=== PATIENT | female | born 1985 | race American Indian/Alaskan Native ===

== ENCOUNTER 2016-09-28 08:54 | Emergency (ER) | payer MEDICAID ==
[2016-09-28 09:17] VITALS: BP 149/97
[2016-09-28] MEDS ORDERED: ROCEPHIN IM ONE (09:58)
[2016-09-28] MEDS ORDERED: XYLOCAINE 1% MPF 5 mL INFILTRATI ONE (09:58)
--- NOTE | 2016-09-28 10:52 | Emergency Department Report ---
<PRASANTH DE LOS SANTOS - Last Filed: 09/28/16 11:04> ED ENT HPI - General Chief complaint: Dental/Oral Stated complaint: SEVERE PAIN LEFT SIDE JAW Time Seen by Provider: 09/28/16 09:46 Source: patient Mode of arrival: Ambulatory Limitations: No Limitations - History of Present Illness Initial comments: Patient comes in with complaints of mouth pain and swelling. 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 -: Gradual, days(s) (3) Location: other (left greater than right jaw) Severity: moderate Consistency: constant Improves with: none Worsens with: other (palpation) Associated Symptoms: denies: fever, cough, gum swelling, toothache, pain with swallowing, sore throat, tinnitus, hearing loss, discharge from ear, rhinorrhea - Related Data Previous Rx's Medication Instructions Recorded Last Taken Type Acetaminophen/Codeine [Tylenol 1 tab PO Q4HR PRN #30 tablet 09/28/16 Unknown Rx /Codeine # 3 tab] Amoxicillin 1,000 mg PO BID #40 capsule 09/28/16 Unknown Rx predniSONE [Deltasone] 40 mg PO QDAY 5 Days 09/28/16 Unknown Rx Allergies Allergy/AdvReac Type Severity Reaction Status Date / Time aspirin Allergy Angioedema Verified 07/21/15 08:41 ED Dental HPI - General Chief complaint: Dental/Oral Stated complaint: SEVERE PAIN LEFT SIDE JAW Time Seen by Provider: 09/28/16 09:46 Source: patient Mode of arrival: Ambulatory Limitations: No Limitations - Related Data Previous Rx's Medication Instructions Recorded Last Taken Type Acetaminophen/Codeine [Tylenol 1 tab PO Q4HR PRN #30 tablet 09/28/16 Unknown Rx /Codeine # 3 tab] Amoxicillin 1,000 mg PO BID #40 capsule 09/28/16 Unknown Rx predniSONE [Deltasone] 40 mg PO QDAY 5 Days 09/28/16 Unknown Rx Allergies Allergy/AdvReac Type Severity Reaction Status Date / Time aspirin Allergy Angioedema Verified 07/21/15 08:41 ED Review of Systems ROS: Stated complaint: SEVERE PAIN LEFT SIDE JAW Other details as noted in HPI Constitutional: denies: chills, fever Eyes: denies: eye pain, eye discharge, vision change ENT: other (jaw pain and swelling). denies: ear pain, throat pain Respiratory: denies: cough, shortness of breath, wheezing Cardiovascular: denies: chest pain, palpitations Endocrine: no symptoms reported Gastrointestinal: denies: abdominal pain, nausea, diarrhea Genitourinary: denies: urgency, dysuria, discharge Musculoskeletal: denies: back pain, joint swelling, arthralgia Skin: denies: rash, lesions Neurological: denies: headache, weakness, paresthesias Psychiatric: denies: anxiety, depression Hematological/Lymphatic: denies: easy bleeding, easy bruising ED Past Medical Hx - Past Medical History Additional medical history: cystic hygroma - Surgical History Additional Surgical History: "right foot surgery" - Social History Smoking Status: Never Smoker Substance Use Type: None - Medications Home Medications: Home Medications Medication Instructions Recorded Confirmed Last Taken Type Acetaminophen/Codeine [Tylenol 1 tab PO Q4HR PRN #30 tablet 09/28/16 Unknown Rx /Codeine # 3 tab] Amoxicillin 1,000 mg PO BID #40 capsule 09/28/16 Unknown Rx predniSONE [Deltasone] 40 mg PO QDAY 5 Days 09/28/16 Unknown Rx ED Physical Exam - General Limitations: No Limitations General appearance: alert, in no apparent distress - Head Head exam: Present: atraumatic, normocephalic, other (left greater than right jaw swelling without redness) - Eye Eye exam: Present: normal appearance - ENT ENT exam: Present: mucous membranes moist, TM's normal bilaterally, normal external ear exam - Expanded ENT Exam Expanded Mouth exam: Present: tongue normal, other (bilateral external jaw pain and swelling). Absent: drooling, trismus, muffled voice, tongue elevation Teeth exam: Present: other (upper and lower dentures noted) Throat exam: Positive: normal inspection. Negative: tonsillar erythema, tonsillomegaly, tonsillar exudate - Neck Neck exam: Present: normal inspection - Respiratory Respiratory exam: Present: normal lung sounds bilaterally. Absent: respiratory distress - Cardiovascular Cardiovascular Exam: Present: regular rate, normal rhythm. Absent: systolic murmur, diastolic murmur, rubs, gallop - GI/Abdominal GI/Abdominal exam: Present: soft, normal bowel sounds - Extremities Exam Extremities exam: Present: normal inspection - Back Exam Back exam: Present: normal inspection - Neurological Exam Neurological exam: Present: alert, oriented X3 - Psychiatric Psychiatric exam: Present: normal affect, normal mood - Skin Skin exam: Present: warm, dry, intact, normal color. Absent: rash ED Course Vital Signs 09/28/16 09:15 Temperature 98.5 F Pulse Rate 94 H Respiratory 19 Rate Blood Pressure 149/97 O2 Sat by Pulse 100 Oximetry ED Medical Decision Making - Medical Decision Making patient has history of this condition and states that usually steroids and Abx seem to help it calm down. Denies any trauma. Patient given IM Solu-medrol in ER to decrease swelling. Patient is stable for discharge and in agreement with treatment plan. Critical care attestation.: If time is entered above; I have spent that time in minutes in the direct care of this critically ill patient, excluding procedure time. ED Disposition Disposition: DISCHARGED TO HOME OR SELFCARE Is pt being admited?: No Does the pt Need Aspirin: No Condition: Good Instructions: Acetaminophen/Codeine (By mouth), Prednisone (By mouth), Amoxicillin (By mouth) Prescriptions: Acetaminophen/Codeine [Tylenol /Codeine # 3 tab] 1 tab PO Q4HR PRN #30 tablet PRN Reason: Pain Amoxicillin 1,000 mg PO BID #40 capsule predniSONE [Deltasone] 40 mg PO QDAY 5 Days Referrals: PRIMARY CARE,MD [Primary Care Provider] - 3-5 Days Time of Disposition: 10:56 <CIPRIANO BEASLEY - Last Filed: 09/28/16 15:36> ED Course - Reevaluation(s) Reevaluation #1: ARMINDA notified that I do not feel comfortable treating a neck infection with steroids. He was informed to contact patient. Hold steroids. Given ENT referral. 09/28/16 15:35
== END 2016-09-28 11:02 | disposition home or self-care (01) ==
LOC: ED 08:54
DX: R68.84 Jaw pain (principal); R22.0 Localized swelling, mass and lump, head; Z88.6 Allergy status to analgesic agent
CPT/HCPCS: 96372; 99282; J0696; J2930

== ENCOUNTER 2016-10-29 07:16 | Emergency (ER) | payer MEDICAID ==
[2016-10-29 07:25] VITALS: BP 143/97
== END 2016-10-29 07:52 | disposition left against medical advice (07) ==
LOC: ED 07:16
DX: R51 Headache (principal); Z88.6 Allergy status to analgesic agent; Z53.21 Procedure and treatment not carried out due to patient leaving prior to being seen by health care provider

== ENCOUNTER 2016-12-24 10:38 | Emergency (ER) | payer MEDICAID ==
[2016-12-24 11:00] VITALS: BP 156/113
[2016-12-24 11:15] LABS: Basophils % (Auto) 1.2 % (0.0-1.8); Eosinophils % (Auto) 5.6 % (0.0-4.3); Hematocrit 41.3 % (30.3-42.9); Hemoglobin 13.2 gm/dl (10.1-14.3); Mean Corpuscular HGB Conc 32 % (30-34); Mean Corpuscular Hemoglobin 27 pg (28-32); Mean Corpuscular Volume 84 fl (79-97); Platelet Count 327 K/mm3 (140-440); Red Blood Count 4.91 M/mm3 (3.65-5.03); White Blood Count 5.8 K/mm3 (4.5-11.0)
[2016-12-24 11:29] LABS: Anion Gap 18 mmol/L; Blood Urea Nitrogen 12 mg/dL (7-17); Carbon Dioxide 25 mmol/L (22-30); Chloride 102.6 mmol/L (98-107); Glucose 99 mg/dL (65-100); Potassium 4.4 mmol/L (3.6-5.0); Sodium 141 mmol/L (137-145)
== END 2016-12-24 12:45 | disposition left against medical advice (07) ==
LOC: ED 10:38
DX: R51 Headache (principal); Z53.21 Procedure and treatment not carried out due to patient leaving prior to being seen by health care provider
CPT/HCPCS: 36415; 80048; 85025

== ENCOUNTER 2017-01-03 12:03 | Emergency (ER) | payer MEDICAID ==
[2017-01-03 13:20] VITALS: BP 151/99
--- NOTE | 2017-01-03 13:52 | Emergency Department Report ---
ED ENT HPI - General Chief complaint: Dental/Oral Stated complaint: SEVERE PAIN IN LEFT JAW Time Seen by Provider: 01/03/17 13:38 Source: patient Mode of arrival: Ambulatory Limitations: No Limitations - History of Present Illness Initial comments: pt is a 31 y/o aaf with hx of cystic hygroma seen in ed frequently for same pt fails follow up with primary care , pt presents today for complaint of left jaw pain , seen last on 12/24/2016 for same requesting tramadol po for pain , pt couseled that she must see primary caref or intermediate frame tender pain management. Onset/Timin (this is chronic condition since childhood ) -: month(s) Location: other (left lower jaw ) Severity: moderate Severity scale (0 -10): 3 Quality: aching Consistency: intermittent Worsens with: medication Context- Dental: history of dental caries Associated Symptoms: toothache - Related Data Previous Rx's Medication Instructions Recorded Last Taken Type Acetaminophen/Codeine [Tylenol 1 tab PO Q4HR PRN #30 tablet 09/28/16 Unknown Rx /Codeine # 3 tab] Amoxicillin 1,000 mg PO BID #40 capsule 09/28/16 Unknown Rx predniSONE [Deltasone] 40 mg PO QDAY 5 Days 09/28/16 Unknown Rx Acetaminophen [Acetaminophen TAB] 1,000 mg PO Q6HR #60 tablet 01/03/17 Unknown Rx Acetaminophen/Codeine [Tylenol 1 tab PO Q6H PRN #3 tab 01/03/17 Unknown Rx /Codeine # 3 tab] Allergies Allergy/AdvReac Type Severity Reaction Status Date / Time aspirin Allergy Angioedema Verified 07/21/15 08:41 ED Dental HPI - General Chief complaint: Dental/Oral Stated complaint: SEVERE PAIN IN LEFT JAW Time Seen by Provider: 01/03/17 13:38 Source: patient Mode of arrival: Ambulatory Limitations: No Limitations - Related Data Previous Rx's Medication Instructions Recorded Last Taken Type Acetaminophen/Codeine [Tylenol 1 tab PO Q4HR PRN #30 tablet 09/28/16 Unknown Rx /Codeine # 3 tab] Amoxicillin 1,000 mg PO BID #40 capsule 09/28/16 Unknown Rx predniSONE [Deltasone] 40 mg PO QDAY 5 Days 09/28/16 Unknown Rx Acetaminophen [Acetaminophen TAB] 1,000 mg PO Q6HR #60 tablet 07/29/17 Unknown Rx Acetaminophen/Codeine [Tylenol 1 tab PO Q6H PRN #3 tab 01/03/17 Unknown Rx /Codeine # 3 tab] Allergies Allergy/AdvReac Type Severity Reaction Status Date / Time aspirin Allergy Angioedema Verified 07/21/15 08:41 ED Review of Systems ROS: Stated complaint: SEVERE PAIN IN LEFT JAW Other details as noted in HPI Constitutional: denies: chills, fever Eyes: denies: eye pain, eye discharge, vision change ENT: dental pain, other (jaw pain chronic) Respiratory: denies: cough, shortness of breath, wheezing Cardiovascular: denies: chest pain, palpitations Endocrine: no symptoms reported Gastrointestinal: denies: abdominal pain, nausea, diarrhea Genitourinary: denies: urgency, dysuria, discharge Musculoskeletal: denies: back pain, joint swelling, arthralgia Skin: denies: rash, lesions Neurological: denies: headache, weakness, paresthesias Psychiatric: denies: anxiety, depression Hematological/Lymphatic: denies: easy bleeding, easy bruising ED Past Medical Hx - Past Medical History Previous Medical History?: Yes Additional medical history: cystic hygroma - Surgical History Past Surgical History?: Yes Additional Surgical History: "right foot surgery" - Social History Smoking Status: Never Smoker Substance Use Type: None - Medications Home Medications: Home Medications Medication Instructions Recorded Confirmed Last Taken Type Acetaminophen/Codeine [Tylenol 1 tab PO Q4HR PRN #30 tablet 09/28/16 Unknown Rx /Codeine # 3 tab] Amoxicillin 1,000 mg PO BID #40 capsule 09/28/16 Unknown Rx predniSONE [Deltasone] 40 mg PO QDAY 5 Days 09/28/16 Unknown Rx Acetaminophen [Acetaminophen TAB] 1,000 mg PO Q6HR #60 tablet 01/03/17 Unknown Rx Acetaminophen/Codeine [Tylenol 1 tab PO Q6H PRN #3 tab 01/03/17 Unknown Rx /Codeine # 3 tab] ED Physical Exam - General Limitations: No Limitations General appearance: alert, in no apparent distress - Head Head exam: Present: atraumatic, normocephalic - Eye Eye exam: Present: normal appearance - ENT ENT exam: Present: TM's normal bilaterally, normal external ear exam - Expanded ENT Exam Expanded Mouth exam: Present: normal external inspection, tongue normal. Absent: drooling, trismus, muffled voice, tongue elevation, laceration Teeth exam: Present: dental caries (18) Throat exam: Positive: normal inspection, other (uvula midline airway is patent ). Negative: tonsillar erythema, tonsillomegaly, tonsillar exudate, R peritonsillar mass, L peritonsillar mass - Neck Neck exam: Present: normal inspection, full ROM, lymphadenopathy. Absent: tenderness, thyromegaly - Respiratory Respiratory exam: Present: normal lung sounds bilaterally. Absent: respiratory distress, wheezes, rhonchi, stridor - Cardiovascular Cardiovascular Exam: Present: regular rate, normal rhythm. Absent: systolic murmur, diastolic murmur, rubs, gallop - GI/Abdominal GI/Abdominal exam: Present: soft, normal bowel sounds - Rectal Rectal exam: Present: deferred - Extremities Exam Extremities exam: Present: normal inspection, full ROM, tenderness - Back Exam Back exam: Present: normal inspection - Neurological Exam Neurological exam: Present: alert, oriented X3, CN II-XII intact - Psychiatric Psychiatric exam: Present: normal affect, normal mood - Skin Skin exam: Present: warm, dry, intact, normal color. Absent: rash ED Course Vital Signs 01/03/17 01/03/17 12:05 13:19 Temperature 98.7 F 97.9 F Pulse Rate 98 H 89 Respiratory 20 18 Rate Blood Pressure 167/113 Blood Pressure 151/99 [Left] O2 Sat by Pulse 100 98 Oximetry ED Medical Decision Making - Medical Decision Making Pt is as 31 y/o aaf with hx of cyst hygroma who presents for 4th time in 4 months 2nd time this month seeking pain medication for left lower jaw pain , pt endorse aching 4/10 intermittent worse at night, pt denies dysphagia no sob no wheezing pt is tolerating po intake with out difficulty , exam: airway is patent no erythema no edema no exudate dental carries to #18, no focal abscess no gum erythema, noted facial mass mild submandible lymph , exam not change from noted exam documentin in 09/2016, plan: naproxen prn pain referral to ent pt advised to follow up with primary care for pain management. Critical care attestation.: If time is entered above; I have spent that time in minutes in the direct care of this critically ill patient, excluding procedure time. ED Disposition Clinical Impression: Jaw pain Disposition: DC- TO HOME OR SELFCARE Is pt being admited?: No Does the pt Need Aspirin: No Condition: Good Instructions: Temporomandibular Disorder (ED) Additional Instructions: follow up with ENT Dr. Greer [facility] [phone] Prescriptions: Acetaminophen [Acetaminophen TAB] 1,000 mg PO Q6HR #60 tablet Acetaminophen/Codeine [Tylenol /Codeine # 3 tab] 1 tab PO Q6H PRN #3 tab PRN Reason: Pain Referrals: PRIMARY CARE, [Primary Care Provider] - 3-5 Days Forms: Work/School Release Form(ED) Time of Disposition: 14:05
== END 2017-01-03 14:16 | disposition home or self-care (01) ==
LOC: ED 12:03
DX: R68.84 Jaw pain (principal)
CPT/HCPCS: 99282

== ENCOUNTER 2017-08-01 09:00 | Emergency (ER) | payer MEDICAID ==
[2017-08-01 09:04] VITALS: BP 121/82
--- NOTE | 2017-08-01 09:48 | Emergency Department Report ---
HPI - General Chief Complaint: Medical Clearance Time Seen by Provider: 08/01/17 09:18 - HPI HPI: Patient here report that she has a history of cystic hydroma and has occasional flareups with swelling of her face. Patient says she is usually treated with antibiotics and swelling goes away. Patient says that she usually sees Dr. Rosales and he puts her on Levaquin and Ultram . She was here previously on 2016 and was treated with Tylenol 3. Patient does not have a fever. She is with tachycardia 110. Pain is 9 out of 10 located to mandibular area on both sides. Pain is dull. Pain is worse with talking and better with rest. Denies any sore throat, swelling of tongue or drooling. Denies any change in speech. Denies any coughing, chest pain or shortness of breath. ED Past Medical Hx - Past Medical History Previous Medical History?: Yes Additional medical history: cystic hygroma - Surgical History Past Surgical History?: Yes Additional Surgical History: "right foot surgery" - Family History Family history: hypertension - Social History Smoking Status: Never Smoker Substance Use Type: None - Medications Home Medications: Home Medications Medication Instructions Recorded Confirmed Last Taken Type Acetaminophen/Codeine [Tylenol 1 tab PO Q4HR PRN #30 tablet 09/28/16 Unknown Rx /Codeine # 3 tab] Amoxicillin 1,000 mg PO BID #40 capsule 09/28/16 Unknown Rx predniSONE [Deltasone] 40 mg PO QDAY 5 Days tab 09/28/16 Unknown Rx Acetaminophen [Acetaminophen TAB] 1,000 mg PO Q6HR #60 tablet 01/03/17 Unknown Rx Acetaminophen/Codeine [Tylenol 1 tab PO Q6H PRN #3 tab 01/03/17 Unknown Rx /Codeine # 3 tab] Levofloxacin [Levaquin] 750 mg PO QDAY 10 Days #10 tablet 08/01/17 Unknown Rx traMADol [Ultram] 50 mg PO Q6HR PRN #12 tablet 08/01/17 Unknown Rx ED Review of Systems ROS: Stated complaint: LEFT SIDE FACIAL SWELLING Other details as noted in HPI Comment: All other systems reviewed and negative Constitutional: no symptoms reported Eyes: denies: eye pain, eye discharge ENT: other (facial pain and swelling). denies: ear pain, throat pain, congestion Respiratory: no symptoms reported Cardiovascular: denies: chest pain, palpitations, dyspnea on exertion, edema, syncope, paroxysmal nocturnal dyspnea Gastrointestinal: denies: abdominal pain, nausea, vomiting, diarrhea Skin: denies: rash Neurological: denies: headache Physical Exam - Physical Exam Vital Signs: Vital Signs 08/01/17 09:01 Temperature 98.3 F Pulse Rate 110 H Respiratory 20 Rate Blood Pressure 121/82 [Right] O2 Sat by Pulse 100 Oximetry Vital Signs 08/01/17 08/01/17 09:01 09:49 Temperature 98.3 F Pulse Rate 110 H 92 H Respiratory 20 Rate Blood Pressure 121/82 [Right] O2 Sat by Pulse 100 Oximetry General: This is a 31-year-old female well-nourished well-developed in no acute distress Physical Exam: Head: Normocephalic, atraumatic, no abrasion, no bruising and no contusion. Eyes: Biateral pupils equal and reactive to light, bilateral EOM intact.. Bilateral conjunctival and sclera without injection, normal accommodation. No nystagmus Mouth: Moist, no pharyngeal exudate or erythema. No peritonsillar abscesses. Uvula is midline and oral airways patent. Patient with bilateral mandible swelling with submental swelling., No erythema. Mild tenderness to palpation. Speech is clear. She should able to open and close her mouth without any difficulties. No trismus Ears: Bilateral TM pearly townsend. Bilateral EAC without any redness swelling or drainage. No mastoid bone tenderness Nose: Biateral nasal mucosa normal. Maxillary and frontal sinuses non-tender to palpate. Neck: Supple, No Cervical adenopathy, full range of motion and no C-spine tenderness. No swelling or tracheal deviation normal reflexes Cardiovascular: S1, S2. Regular rate and rhythm. No murmur. Capillary refill is less then 3 seconds. Lungs: Clear to auscultate bilaterally. No rhonchi, wheezes or rales. No chest wall tenderness. No chest contusion. No bruising to chest. Abdomen: Non-tender to palpate in all quadrants, no guarding or rebound tenderness, positive bowel sounds in all quadrants. No CVA tenderness. No hernia, bruit or mass. No rigidity or distention. Extremities: No clubbing, cyanosis or edema. +2 pulses. No neurovascular compromise Skin: Clean, dry and intact. No rash or lesions. Psych: Normal mood and behavior ED Course Vital Signs 08/01/17 09:01 Temperature 98.3 F Pulse Rate 110 H Respiratory 20 Rate Blood Pressure 121/82 [Right] O2 Sat by Pulse 100 Oximetry Vital Signs 08/01/17 08/01/17 09:01 09:49 Temperature 98.3 F Pulse Rate 110 H 92 H Respiratory 20 Rate Blood Pressure 121/82 [Right] O2 Sat by Pulse 100 Oximetry - Reevaluation(s) Reevaluation #1: 08/01/17 10:06 Patient stable throughout ED stay ED Medical Decision Making - Medical Decision Making ED Course: Pt with acute flareup of cystic hygroma. She usually sees Dr. Stevens as if she has an appointment Thursday but couldn't wait because she is in pain. This is ongoing problem for patient and she's been to ER several times. I discussed with her that I'll put her on an antibiotic and pain medication and she'll need to follow up with her primary care on Thursday. Patient voiced understanding. No airway compromise. Patient discharged home in stable condition with prescription for Ultram and Levaquin and to follow up with primary care on Thursday Critical care attestation.: If time is entered above; I have spent that time in minutes in the direct care of this critically ill patient, excluding procedure time. ED Disposition Clinical Impression: Cystic hygroma, Facial swelling Disposition: - TO HOME OR SELFCARE Is pt being admited?: No Does the pt Need Aspirin: No Condition: Stable Instructions: Musculoskeletal Pain (ED) Additional Instructions: Please follow up with your primary care physician in 2 days for management of chronic cystic hygroma Take antibiotic and pain medication as prescribed He is to not drive or operate heavy machinery while taking Ultram as this medication causes drowsiness Prescriptions: Levofloxacin [Levaquin] 750 mg PO QDAY 10 Days #10 tablet traMADol [Ultram] 50 mg PO Q6HR PRN #12 tablet PRN Reason: Pain Referrals: JAVIER ROSALES MD [Staff Physician] - 08/03/17 Forms: Work/School Release Form(ED)
== END 2017-08-01 10:21 | disposition home or self-care (01) ==
LOC: ED 09:00
DX: D18.1 Lymphangioma, any site (principal); R22.0 Localized swelling, mass and lump, head
CPT/HCPCS: 99282

== ENCOUNTER 2017-08-20 09:37 | Emergency (ER) | payer MEDICAID ==
[2017-08-20 10:04] VITALS: BP 115/67
[2017-08-20] MEDS ORDERED: MOTRIN PO ONE (12:32)
[2017-08-20] MEDS ORDERED: LEVAQUIN ONE (12:32)
--- NOTE | 2017-08-20 15:15 | Emergency Department Report ---
HPI - General Chief Complaint: Pain General Time Seen by Provider: 08/20/17 13:38 - HPI HPI: The patient is a 31-year-old female presents for evaluation of face pain. The patient has a history of cystic hydroma since childhood. She reports her recurrence of worsening pain and swelling to the left jaw, consistent with previous episodes of cystic hydroma, she states that her current episode of pain and swelling began 2 days ago, has been constant, moderate to severe, throbbing in quality, and is exacerbated with chewing. denies dyspnea, neck stiffness, dysphagia, stridor, drooling, difficulty tolerating secretions, dysphonia, hoarseness of voice, abdominal pain. ED Past Medical Hx - Past Medical History Previous Medical History?: Yes Additional medical history: cystic hygroma - Surgical History Past Surgical History?: Yes Additional Surgical History: "right foot surgery" - Social History Smoking Status: Never Smoker Substance Use Type: None - Medications Home Medications: Home Medications Medication Instructions Recorded Confirmed Last Taken Type Acetaminophen/Codeine [Tylenol 1 tab PO Q4HR PRN #30 tablet 09/28/16 Unknown Rx /Codeine # 3 tab] Amoxicillin 1,000 mg PO BID #40 capsule 09/28/16 Unknown Rx predniSONE [Deltasone] 40 mg PO QDAY 5 Days tab 09/28/16 Unknown Rx Acetaminophen [Acetaminophen TAB] 1,000 mg PO Q6HR #60 tablet 01/03/17 Unknown Rx Acetaminophen/Codeine [Tylenol 1 tab PO Q6H PRN #3 tab 01/03/17 Unknown Rx /Codeine # 3 tab] traMADol [Ultram] 50 mg PO Q6HR PRN #12 tablet 08/01/17 Unknown Rx Levofloxacin [Levaquin TAB] 750 mg PO QDAY 10 Days #10 tablet 08/20/17 Unknown Rx ED Review of Systems ROS: Stated complaint: FACIAL SWELLING Other details as noted in HPI Constitutional: denies: fever reports facial swelling and pain ENT: denies: throat or neck pain Respiratory: denies: cough, shortness of breath Cardiovascular: denies: chest pain Endocrine: denies unexplained weight loss or gain Gastrointestinal: denies: abdominal pain, nausea Genitourinary: denies: dysuria Musculoskeletal: denies: leg swelling Skin: denies: rash Neurological: denies: headache Hematological/Lymphatic: denies: easy bleeding or easy bruising Psych: denies sadness or hopelessness Physical Exam - Physical Exam Vital Signs: Vital Signs 08/20/17 10:00 Temperature 97.5 F L Pulse Rate 101 H Respiratory 16 Rate Blood Pressure 115/67 O2 Sat by Pulse 100 Oximetry Physical Exam: General: well-nourished, well-developed, no acute distress Head: Normocephalic, atraumatic, small area of erythema and tenderness present to the left lower face jawline, no fluctuance or crepitus, no sign of abscess Eyes: normal sclera ENT: Mucous membranes are pink and moist Neck: trachea midline, neck supple, No neck stiffness, no cervical adenopathy Respiratory: Breath sounds equal bilaterally, no wheezing, rales, or rhonchi Cardio: S1 and S2 present, no murmurs, rubs, gallops, capillary refill is brisk Abdomen: Normoactive bowel sounds, soft abdomen, no rigidity, no guarding or rebound tenderness Chest WALL/Back: No tenderness to palpation of the chest wall, no CVA tenderness with percussion Musc: No pitting edema Skin: No rash Neuro: no facial drooping, normal speech Psych: Normal affect ED Course Vital Signs 08/20/17 10:00 Temperature 97.5 F L Pulse Rate 101 H Respiratory 16 Rate Blood Pressure 115/67 O2 Sat by Pulse 100 Oximetry ED Medical Decision Making - Medical Decision Making The patient was seen and examined by myself. The patient is placed on a cardiac catheterization technician and continuous pulse ox. On initial evaluation, the patient was found to be in no distress. Evaluation orders were placed. The patient is given by mouth Levaquin and a tablet of [employer] for her pain. The patient was reevaluated and reported that their symptoms were markedly improved. The patient is stable for discharge with outpatient follow-up. The patient is given follow-up and return instructions. The patient expressed understanding and agreed with the plan. The patient is discharged in stable condition. Critical care attestation.: If time is entered above; I have spent that time in minutes in the direct care of this critically ill patient, excluding procedure time. ED Disposition Clinical Impression: Cystic hygroma, Cellulitis of face Disposition: DC-01 TO HOME OR SELFCARE Is pt being admited?: No Does the pt Need Aspirin: No Condition: Stable Instructions: Cellulitis (ED) Prescriptions: Levofloxacin [Levaquin TAB] 750 mg PO QDAY 10 Days #10 tablet Referrals: JAVIER ROSALES MD [Primary Care Provider] - 3-5 Days Time of Disposition: 14:11
== END 2017-08-20 14:05 | disposition home or self-care (01) ==
LOC: ED 09:37
DX: D18.1 Lymphangioma, any site (principal); L03.211 Cellulitis of face

== ENCOUNTER 2017-09-09 06:59 | Emergency (ER) | payer MEDICAID ==
[2017-09-09 07:31] VITALS: BP 122/75
[2017-09-09] MEDS ORDERED: TYLENOL PO ONE (11:26)
--- NOTE | 2017-09-09 11:34 | Emergency Department Report ---
ED General Adult HPI - General Chief complaint: Pain General Stated complaint: FACE PAIN WITH SWELLING Time Seen by Provider: 09/09/17 11:09 Source: patient Mode of arrival: Ambulatory Limitations: No Limitations - History of Present Illness Initial comments: This is a 31-year-old female nontoxic, well nourished in appearance, no acute signs of distress presents to the ED with c/o of acute on chronic face pain and swelling. 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 Patient denies following up with a pain specialist. Patient stated that she usually takes [place] or Lortabs that helps for pain and stated last dose was 2 weeks ago. Patient denies any trauma. Patient denies any fever, chills, nausea, vomiting, headache or stiff neck. Patient denies any chest pain or shortness of breath. Patient states allergies to aspirin. Past medical history includes cyclic hygroma. MD Complaint: Facial pain -: year(s) Location: face Radiation: non-radiation Severity scale (0 -10): 8 Quality: aching Consistency: intermittent Improves with: none Worsens with: none Associated Symptoms: denies other symptoms. denies: confusion, chest pain, cough, diaphoresis, fever/chills, headaches, loss of appetite, malaise, nausea/ vomiting, rash, seizure, shortness of breath, syncope, weakness Treatments Prior to Arrival: none - Related Data Previous Rx's Medication Instructions Recorded Last Taken Type Acetaminophen/Codeine [Tylenol 1 tab PO Q4HR PRN #30 tablet 09/28/16 Unknown Rx /Codeine # 3 tab] Amoxicillin 1,000 mg PO BID #40 capsule 09/28/16 Unknown Rx predniSONE [Deltasone] 40 mg PO QDAY 5 Days tab 09/28/16 Unknown Rx Acetaminophen [Acetaminophen TAB] 1,000 mg PO Q6HR #60 tablet 01/03/17 Unknown Rx Acetaminophen/Codeine [Tylenol 1 tab PO Q6H PRN #3 tab 01/03/17 Unknown Rx /Codeine # 3 tab] traMADol [Ultram] 50 mg PO Q6HR PRN #12 tablet 08/01/17 Unknown Rx Levofloxacin [Levaquin TAB] 750 mg PO QDAY 10 Days #10 tablet 08/20/17 Unknown Rx Acetaminophen 500 mg PO Q8H PRN #30 tablet 09/09/17 Unknown Rx Allergies Allergy/AdvReac Type Severity Reaction Status Date / Time aspirin Allergy Angioedema Verified 07/21/15 08:41 ED Review of Systems ROS: Stated complaint: FACE PAIN WITH SWELLING Other details as noted in HPI Constitutional: denies: chills, fever Eyes: denies: eye pain, eye discharge, vision change ENT: denies: ear pain, throat pain Respiratory: denies: cough, shortness of breath, wheezing Cardiovascular: denies: chest pain, palpitations Endocrine: no symptoms reported Gastrointestinal: denies: abdominal pain, nausea, diarrhea Genitourinary: denies: urgency, dysuria, discharge Musculoskeletal: denies: back pain, joint swelling, arthralgia Skin: denies: rash, lesions Neurological: denies: headache, weakness, paresthesias Psychiatric: denies: anxiety, depression Hematological/Lymphatic: denies: easy bleeding, easy bruising ED Past Medical Hx - Past Medical History Previous Medical History?: Yes Additional medical history: cystic hygroma, facial pain and swelling - Surgical History Past Surgical History?: Yes Additional Surgical History: "right foot surgery" - Social History Smoking Status: Never Smoker Substance Use Type: Non Opiate Pain - Medications Home Medications: Home Medications Medication Instructions Recorded Confirmed Last Taken Type Acetaminophen/Codeine [Tylenol 1 tab PO Q4HR PRN #30 tablet 09/28/16 Unknown Rx /Codeine # 3 tab] Amoxicillin 1,000 mg PO BID #40 capsule 09/28/16 Unknown Rx predniSONE [Deltasone] 40 mg PO QDAY 5 Days tab 09/28/16 Unknown Rx Acetaminophen [Acetaminophen TAB] 1,000 mg PO Q6HR #60 tablet 01/03/17 Unknown Rx Acetaminophen/Codeine [Tylenol 1 tab PO Q6H PRN #3 tab 01/03/17 Unknown Rx /Codeine # 3 tab] traMADol [Ultram] 50 mg PO Q6HR PRN #12 tablet 08/01/17 Unknown Rx Levofloxacin [Levaquin TAB] 750 mg PO QDAY 10 Days #10 tablet 08/20/17 Unknown Rx Acetaminophen 500 mg PO Q8H PRN #30 tablet 09/09/17 Unknown Rx ED Physical Exam - General Limitations: No Limitations General appearance: alert, in no apparent distress - Head Head exam: Present: atraumatic, normocephalic - Eye Eye exam: Present: normal appearance, PERRL, EOMI Pupils: Present: normal accommodation - ENT ENT exam: Present: normal exam, normal orophraynx, mucous membranes moist, TM's normal bilaterally (no abscess present.), normal external ear exam, other - Neck Neck exam: Present: normal inspection, full ROM. Absent: tenderness, meningismus, lymphadenopathy - Respiratory Respiratory exam: Present: normal lung sounds bilaterally. Absent: respiratory distress, wheezes, rales, rhonchi, stridor, chest wall tenderness, accessory muscle use, decreased breath sounds, prolonged expiratory - Cardiovascular Cardiovascular Exam: Present: regular rate, normal rhythm, normal heart sounds. Absent: irregular rhythm, systolic murmur, diastolic murmur, rubs, gallop - GI/Abdominal GI/Abdominal exam: Present: soft, normal bowel sounds - Extremities Exam Extremities exam: Present: normal inspection, full ROM, normal capillary refill - Back Exam Back exam: Present: normal inspection, full ROM - Neurological Exam Neurological exam: Present: alert, oriented X3, normal gait - Psychiatric Psychiatric exam: Present: normal affect, normal mood - Skin Skin exam: Present: warm, dry, intact, normal color. Absent: rash - Other Other exam information: Facial swelling to bilateral cheeks and chin times years from cystic hygroma. ED Course Vital Signs 09/09/17 09/09/17 07:25 07:40 Temperature 99.0 F 99 F Pulse Rate 109 H 109 H Respiratory 16 16 Rate Blood Pressure 122/75 122/75 O2 Sat by Pulse 100 100 Oximetry - Reevaluation(s) Reevaluation #1: 09/09/17 11:36 Patient is speaking in full sentences with no signs of distress noted. ED Medical Decision Making - Medical Decision Making This is a 31-year-old female that presents with pain control. Patient is stable and was examined by me. There is no signs of cellulitis or abscess. Past medical history is consistent with pain. A search at [facility] indicates that patient just received yesterday 10 pills of note is 7.5. Patient today is requesting for Lortabs. Patient received Tylenol in the ED and patient is discharged with Tylenol as patient has about 102 prescriptions from 50 from providers within a year time frame and with the last dose being yesterday of 10 pills. I will refer patient to paint tester. At time of discharge, the patient does not seem toxic or ill in appearance. No acute signs of distress noted. Patient agrees to discharge treatment plan of care. No further questions noted by the patient. Critical care attestation.: If time is entered above; I have spent that time in minutes in the direct care of this critically ill patient, excluding procedure time. ED Disposition Clinical Impression: Facial pain, Cystic hygroma Chronic pain Qualifiers: Chronic pain type: chronic pain syndrome Qualified Code(s): G89.4 - Chronic pain syndrome Disposition: TO HOME OR SELFCARE Is pt being admited?: No Does the pt Need Aspirin: No Condition: Stable Instructions: Acetaminophen (By mouth) Additional Instructions: Follow-up with a primary care/pain specialist doctor in 3-5 days or if symptoms worsen and continue return to emergency room as soon as possible. Prescriptions: Acetaminophen 500 mg PO Q8H PRN #30 tablet PRN Reason: Pain Referrals: PRIMARY CAREMD [Primary Care Provider] - 3-5 Days CIPRIANO ROBERTO MD [Staff Physician] - 3-5 Days [facility]Provider Group] - 3-5 Days [facility] [Outside] - 3-5 Days [facility] [Outside] - 3-5 Days Forms: Work/School Release Form(ED)
== END 2017-09-09 11:49 | disposition home or self-care (01) ==
LOC: ED 06:59
DX: D18.1 Lymphangioma, any site (principal); Z88.6 Allergy status to analgesic agent
CPT/HCPCS: 99282